=== PATIENT | male | born 1975 | race Caucasian/White ===

== ENCOUNTER 2019-09-12 10:19 | Emergency (ER) | payer OTHER ==
[~2019-09-12] VITALS: Ht 175.3 cm; Wt 77.1 kg
--- NOTE | 2019-09-12 10:28 | NUR ---
"Headache on/off since last night- received upsetting news couple days ago +tingling in hands", to ER bed 3, hooked to school bus monitor, changed to hosp gown, warm blanket provided, patient aao X 4, breathing even and unlabored. Dr Nichols at bedside
[2019-09-12 10:48] LABS: BASOPHILS % (AUTO) 0.5 % (0.0-2.0); EOSINOPHILS % (AUTO) 2.4 % (0.0-6.0); HEMATOCRIT 51 % (39-51); HEMOGLOBIN 17.1 g/dL (13.5-17.5); LYMPHOCYTES # (AUTO) 2.2 /CMM (0.8-4.8); LYMPHOCYTES % (AUTO) 24.2 % (20.0-44.0); MEAN CORPUSCULAR HGB CONC 34 g/dl (31.0-36.0); MEAN CORPUSCULAR VOLUME 91 fL (80-96); MONOCYTES # (AUTO) 0.6 /CMM (0.1-1.30); MONOCYTES % (AUTO) 6.4 % (2.0-12.0); NEUTROPHILS # (AUTO) 5.9 /CMM (1.8-8.9); NEUTROPHILS % (AUTO) 66.5 % (43.0-81.0); PLATELET COUNT (AUTO) 168 /CMM (150-450); RED BLOOD CELL COUNT(AUTO) 5.56 MIL/uL (4.5-6.0); WHITE BLOOD COUNT (AUTO) 8.9 K/uL (4.3-11.0)
--- NOTE | 2019-09-12 10:49 | NUR ---
wheeled patient via wheelchair for ct
[2019-09-12] MEDS ORDERED: IBUPROFEN 600 MG TABLET PO ONE ×2 (11:00→11:15)
[2019-09-12] MEDS ORDERED: ACETAMINOPHEN ES 500 MG TABLET PO ONE (11:00)
[2019-09-12 11:01] LABS: CALCIUM, SERUM 8.9 mg/dL (8.5-10.1); CARBON DIOXIDE 27 mmol/L (21-32); CHLORIDE 105 mmol/L (98-107); CREATININE 1.2 mg/dL (0.6-1.3); GLUCOSE 117 mg/dL (74-106); POTASSIUM 3.7 mmol/L (3.5-5.1); SODIUM SERUM 140 mmol/L (136-145); UREA NITROGEN, BLOOD 14 mg/dL (7-18)
[2019-09-12 11:07] LABS: ALANINE AMINOTRANSFERASE 50 U/L (12-78); ALBUMIN 4.3 g/dL (3.4-5.0); ALKALINE PHOSPHATASE 99 U/L (46-116); ASPARTATE AMINOTRANSFERASE 22 U/L (15-37); BILIRUBIN,DIRECT 0.2 mg/dL (0.0-0.2); BILIRUBIN,TOTAL 0.7 mg/dL (0.2-1.0); TOTAL PROTEIN, SERUM 7.8 g/dL (6.4-8.2)
[2019-09-12] MEDS ORDERED: ACETAMINOPHEN ES 500 MG TABLET ONE (11:15)
--- NOTE | 2019-09-12 11:33 | NUR ---
IV removed. Catheter intact and site benign. Pressure and 4x4 applied to site. No bleeding noted.Patient discharged to home in stable condition. Written and verbal after care instructions given. Patient verbalizes understanding of instruction.
[2019-09-12 11:43] VITALS: BP 149/87
== END 2019-09-12 11:37 | disposition home or self-care (01) ==
LOC: ER 10:23
DX: R51 Headache (principal)
CPT/HCPCS: 36415; 70450-TC; 71045-TC; 80048-TC; 80076-TC; 84484-TC; 85025-TC

== ENCOUNTER 2021-05-21 20:48 | Inpatient (IN) | payer OTHER ==
[~2021-05-21] VITALS: Ht 177.8 cm; Wt 89.8 kg
--- NOTE | 2021-05-21 21:35 | NUR ---
BIBS FOR C/O SEVERE HEADACHE AND FEVER/ CHILLS SINCE LAST WEEK. GENERALIZED HEADACHE 10/10 DESCRIBED PRESSURE. TEMP 100.8 AT TRIAGE NO TYLENOL TAKEN AT HOME. PT CHANGED INTO A GOWN AND PLACED ON MONITOR AND V/S STABLE.
[2021-05-21] MEDS ORDERED: ACETAMINOPHEN ES 500 MG TABLET ONE (21:45)
--- NOTE | 2021-05-21 21:52 | NUR ---
pt to ct on unique
[2021-05-21] MEDS ORDERED: CEFTRIAXONE 2 G in IV D5W 50 ML IV ONE (22:00)
[2021-05-21] MEDS ORDERED: ACETAMINOPHEN ES 500 MG TABLET PO ONE (22:00)
[2021-05-21] MEDS ORDERED: CEFTRIAXONE 1 G VIAL ONE (22:08)
--- NOTE | 2021-05-21 22:33 | NUR ---
ORDERED THE PX TO DOSE VANCO. VERIFIED WITH DR. BLOCK REGARDING DOSE. MD MOOREDERED TO GIVE VANCOMYCIN 1GM IV X 1.
--- NOTE | 2021-05-21 22:36 | NUR ---
PT IS UNABLE TO URINATE AT THIS TIME. IS AWARE.
[2021-05-21 22:42] LABS: BASOPHILS % (AUTO) 0.4 % (0.0-2.0); EOSINOPHILS % (AUTO) 0.2 % (0.0-6.0); HEMATOCRIT 38 % (39-51); HEMOGLOBIN 13.1 g/dL (13.5-17.5); LYMPHOCYTES # (AUTO) 0.8 K/uL (0.8-4.8); LYMPHOCYTES % (AUTO) 11.8 % (20.0-44.0); MEAN CORPUSCULAR HGB CONC 35 g/dl (31.0-36.0); MEAN CORPUSCULAR VOLUME 85 fL (80-96); MONOCYTES # (AUTO) 0.4 K/uL (0.1-1.30); MONOCYTES % (AUTO) 5.2 % (2.0-12.0); NEUTROPHILS # (AUTO) 5.8 K/uL (1.8-8.9); NEUTROPHILS % (AUTO) 82.4 % (43.0-81.0); RED BLOOD CELL COUNT(AUTO) 4.47 MIL/uL (4.5-6.0); WHITE BLOOD COUNT (AUTO) 7.1 K/uL (4.3-11.0)
[2021-05-21 22:47] LABS: PLATELET COUNT (AUTO) 38 K/uL (150-450)
[2021-05-21] MEDS ORDERED: IV NS 0.9% 500 ML BAG IV ONE (23:00)
[2021-05-21] MEDS ORDERED: VANCOMYCIN HCL 1 GM in IV D5W 260 ML IV ONE (23:00)
[2021-05-21 23:04] LABS: CALCIUM, SERUM 8.3 mg/dL (8.5-10.1); CREATININE 1.1 mg/dL (0.6-1.3)
[2021-05-21 23:16] LABS: POTASSIUM 3.3 mmol/L (3.5-5.1)
[2021-05-21] MEDS ORDERED: IOHEXOL-300 100 ML VIAL IV ONE (23:35)
[2021-05-21] MEDS ORDERED: IV NS 0.9% 250 ML IV ONE (23:36)
[2021-05-21] MEDS ORDERED: VANCOMYCIN 1 GM VIAL ONE (23:37)
[2021-05-22 01:14] LABS: BILIRUBIN,URINE NEGATIVE (NEGATIVE); COLOR,URINE YELLOW (YELLOW); LEUKOCYTE ESTERASE ,URINE NEGATIVE (NEGATIVE); NITRITE, URINE NEGATIVE (NEGATIVE); PH,URINE 6.5 (5.0-8.0); PROTEIN,URINE NEGATIVE (NEGATIVE); UGLUCOSE NEGATIVE (NEGATIVE)
[2021-05-22 01:21] LABS: BACTERIA,URINE Rare /HPF (None Seen); WBC,URINE 0-2 /HPF (0-3)
[2021-05-22 01:22] LABS: SQUAMOUS EPITHELIAL CELL,UR Rare /HPF (None Seen)
--- NOTE | 2021-05-22 04:50 | NUR ---
REPORT GIVEN TO ALAN RODRIGUEZ FOR KATLIN
--- NOTE | 2021-05-22 04:56 | NUR ---
PT PLACED ON 02 VIA NC @ 2LPM, PT WAS SATTING 93%, NOW SATTING AT 98%
--- NOTE | 2021-05-22 05:07 | NUR ---
PT TRANSPORT TO UNIT ON [facility] EMT AND RN AT BEDSIDE W/ ACLS PROTOCOL. NAD NOTED DURING TRANSPORT. PT AMBULATED FROM [place] TO BED WITH OUT ASSISTANCE
[2021-05-22 05:41] VITALS: BP 139/79
[2021-05-22] MEDS ORDERED: ACETAMINOPHEN 325 MG TABLET PO PRN (06:00)
[2021-05-22] MEDS ORDERED: ONDANSETRON HCL/PF 4 MG/2 ML VIAL IVP PRN (06:00)
[2021-05-22] MEDS ORDERED: POTASSIUM CHLORIDE 20 MEQ TAB.PRT.SR PO ONE (06:00)
[2021-05-22] MEDS: IV NS 0.9% 1,000 ML IV PRN ×2 (06:18→21:57)
--- NOTE | 2021-05-22 07:30 | NUR ---
LAMP SHADES SUPERVISOR NOTES RECEIVED PATIENT IN BED AWAKE. ALERT AND ORIENTED TIMES 4. NO PAIN NOTED. NO RESPIRATORY DISTRESS NOTED. ON TELE MONITOR READING SINUS RHYTHM. IV ACCESS ON RAC # 18 SL AND LAC # 18 INTACT RUNNING NS AT 75 ML/HR. NPO FOR ULTRASOUND. ABLE TO MAKE NEEDS KNOWN . ABLE TO AMBULATE. SAFETY MEASURES IN PLACE. BED IN THE LOWEST POSITION AND LOCKED. CALL LIGHT AND TABLE IN PLACE . WILL CONTINUE TO MONITOR.
[2021-05-22 07:34] LABS: BASOPHILS % (AUTO) 0.3 % (0.0-2.0); EOSINOPHILS % (AUTO) 0.1 % (0.0-6.0); HEMATOCRIT 34 % (39-51); HEMOGLOBIN 12.2 g/dL (13.5-17.5); LYMPHOCYTES # (AUTO) 0.5 K/uL (0.8-4.8); MEAN CORPUSCULAR HGB CONC 36 g/dl (31.0-36.0); MEAN CORPUSCULAR VOLUME 85 fL (80-96); MONOCYTES # (AUTO) 0.3 K/uL (0.1-1.30); MONOCYTES % (AUTO) 5.5 % (2.0-12.0); NEUTROPHILS # (AUTO) 5.3 K/uL (1.8-8.9); NEUTROPHILS % (AUTO) 86.1 % (43.0-81.0); RED BLOOD CELL COUNT(AUTO) 4.04 MIL/uL (4.5-6.0); WHITE BLOOD COUNT (AUTO) 6.2 K/uL (4.3-11.0)
[2021-05-22 07:38] LABS: PLATELET COUNT (AUTO) 33 K/uL (150-450)
[2021-05-22] MEDS: PANTOPRAZOLE 40 MG VIAL IV SCH (08:27)
--- NOTE | 2021-05-22 08:30 | NUR ---
ALAN AYALA FROM LAB CALLED AT 0738 AM GAVE CRITICAL LAB RESULT OF PLATELET COUNT 33. INFORMED DR AP BUCKLEY AT 0830.
[2021-05-22 09:17] LABS: ALANINE AMINOTRANSFERASE 208 U/L (12-78); ALBUMIN 2.6 g/dL (3.4-5.0); ALKALINE PHOSPHATASE 172 U/L (46-116); AMYLASE 33 U/L (25-115); ASPARTATE AMINOTRANSFERASE 178 U/L (15-37); BILIRUBIN,DIRECT 2.9 mg/dL (0.0-0.2); BILIRUBIN,TOTAL 3.5 mg/dL (0.2-1.0); CALCIUM, SERUM 7.7 mg/dL (8.5-10.1); CARBON DIOXIDE 24 mmol/L (21-32); CHLORIDE 100 mmol/L (98-107); CREATININE 0.9 mg/dL (0.6-1.3); GLUCOSE 120 mg/dL (74-106); LIPASE 102 U/L (73-393); MAGNESIUM 2.2 mg/dL (1.8-2.4); PHOSPHORUS 1.8 mg/dL (2.5-4.9); POTASSIUM 3.3 mmol/L (3.5-5.1); SODIUM SERUM 133 mmol/L (136-145); TOTAL PROTEIN, SERUM 5.2 g/dL (6.4-8.2); UREA NITROGEN, BLOOD 7 mg/dL (7-18)
[2021-05-22 09:21] LABS: CHOLESTEROL 75 mg/dL (<200); LDL 27 mg/dL (0-99); TRIGLYCERIDES 325 mg/dL (30-150)
[2021-05-22] MEDS: VANCOMYCIN 1.25 GM in IV D5W 250 ML IV SCH ×2 (09:50→21:06)
[2021-05-22 12:20] LABS: BAND % (MANUAL) 4 % (0.0-5.0); LYMPHOCYTES % (MANUAL) 11 % (16-48); MONOCYTES % (MANUAL) 3 % (0-11.0); NEUTROPHILS % (MANUAL) 82 (42-76)
[2021-05-22 12:25] LABS: BAND % (MANUAL) 4 % (0.0-5.0); EOSINOPHILS % (MANUAL) 1 % (0-4); LYMPHOCYTES % (MANUAL) 6 % (16-48); MONOCYTES % (MANUAL) 6 % (0-11.0); NEUTROPHILS % (MANUAL) 83 (42-76)
[2021-05-22 13:42] LABS: HDL CHOLESTEROL < 10 mg/dL (40-60)
[2021-05-22] MEDS ORDERED: K PHOS NEUTRAL 250 MG TABLET PO ONE (16:00)
--- NOTE | 2021-05-22 18:42 | NUR ---
SCIENTIFIC LABORATORY SUPERVISOR CLOSING NOTES PATIENT IN BED AWAKE. ALERT AND ORIENTED TIMES 4. NO PAIN NOTED. NO RESPIRATORY DISTRESS NOTED. ON TELE MONITOR READING SINUS RHYTHM. IV ACCESS ON RAC # 18 SL AND LAC # 18 INTACT RUNNING NS AT 75 ML/HR. ABLE TO MAKE NEEDS KNOWN . TEMP =99.5. ABLE TO AMBULATE. ALL DUE MEDS GIVEN ORDERED. SAFETY MEASURES IN PLACE. BED IN THE LOWEST POSITION AND LOCKED. CALL LIGHT AND TABLE IN PLACE . WILL ENDORSE FOR KATLIN. .
[2021-05-22 20:00] VITALS: BP 117/69
[2021-05-22] MEDS: HYDROCODONE/APAP 5/325MG TABLET PO PRN (20:15)
--- NOTE | 2021-05-22 20:15 | NUR ---
RN NOTES, PT C/O HEADACHE 11/03, PATIENT WITH FACIAL GRIMACING, A/OX4 SHIRA TO COMMUNICATE NEEDS AND CONCERNS, ON 2LPM VIA NC WITH OPTIMAL O2, X1 VOID AT THIS TIME, ALL SAFETY PRECAUTIONS IN PLACE, S/R OF BED X2 UP, CALL LIGHT W/I REACH, WILL CONTINUE TO MONITOR CLOSELY.
[2021-05-22] MEDS: METRONIDAZOLE 500MG/ NS 100ML 500 MG in PREMIX 1 EA IV SCH (21:50)
[2021-05-22] MEDS ORDERED: CEFTRIAXONE 1 G in IV D5W 50 ML IV SCH (22:00)
[2021-05-23] VITALS: BP 118/75
--- NOTE | 2021-05-23 00:40 | NUR ---
NOTED PATIENT WITH O2 80%, IN RESPIRATORY DISTRESS WITH HR 130S, RR 50-60, BLOOD PRESSURE 160/82, PLACED PATIENT IN NRM AT 15L, O2 INCREASED TO 100%, PATIENT UNABLE TO SAY COMPLETE SENTENCES, BUT ALERT AND ORIENTED, WILL INFORM MD.
--- NOTE | 2021-05-23 00:42 | NUR ---
CALLED DR IBARRA AND REPORT PATIENT'S CONDITION, PER DR IBARRA DO ABGS, CXR, CBC, CMP, PROCALCITONIN, LACTIC ACID, AND EKG STAT, ALL ORDERS NOTED AND CARRIED OUT.
--- NOTE | 2021-05-23 00:54 | NUR ---
RECHECK OF VITAL SIGNS BP-154/82, P-128, RR 45, 100% NRM 15L, PATIENT STILL WITH SOB, WILL CONTINUE TO MONITOR CLOSELY,
[2021-05-23 00:58] LABS: ABG BASE EXCESS 0.1 mmol/L; ABG OXYGEN SATURATION 99.1 % (92.0-98.5); ABG PCO2 30.7 mmHg (35.0-45.0); ABG PH 7.487 (7.350-7.450); ABG PO2 270.1 mmHg (75.0-100.0); AaDO2 412.2 mmHg; COHb 0.1 % (0.5-1.5); MetHb 0.2 % (0.0-1.5); O2Hb 98.8 % (94.0-97.0); SITE, ABG Left Radial; VENT MODE, BG NRB 15L O2
[2021-05-23 01:28] LABS: BASOPHILS % (AUTO) 0.5 % (0.0-2.0); EOSINOPHILS % (AUTO) 0.2 % (0.0-6.0); HEMATOCRIT 35 % (39-51); LYMPHOCYTES % (AUTO) 11.7 % (20.0-44.0); MEAN CORPUSCULAR HGB CONC 35 g/dl (31.0-36.0); MEAN CORPUSCULAR VOLUME 85 fL (80-96); MONOCYTES # (AUTO) 0.7 K/uL (0.1-1.30); NEUTROPHILS # (AUTO) 6.8 K/uL (1.8-8.9); NEUTROPHILS % (AUTO) 79.6 % (43.0-81.0); RED BLOOD CELL COUNT(AUTO) 4.04 MIL/uL (4.5-6.0); WHITE BLOOD COUNT (AUTO) 8.6 K/uL (4.3-11.0)
[2021-05-23 01:33] LABS: PLATELET COUNT (AUTO) 41 K/uL (150-450)
[2021-05-23 01:45] LABS: ALBUMIN 2.3 g/dL (3.4-5.0); BILIRUBIN,TOTAL 4.6 mg/dL (0.2-1.0); CALCIUM, SERUM 7.4 mg/dL (8.5-10.1); POTASSIUM 3.5 mmol/L (3.5-5.1)
[2021-05-23 01:56] LABS: CREATININE 1.1 mg/dL (0.6-1.3)
--- NOTE | 2021-05-23 02:05 | NUR ---
RELAYED DR IBARRA RESULTS FOR LABS, EKG, CRX AND EKG, AND PER DR IBARRA TO HOLD THE IV FLUIDS AT THIS TIME AND GIVE LASIX 10MG IVP ONCE, ALL ORDERS NOTED AND CARRIED OUT.
[2021-05-23] MEDS ORDERED: FUROSEMIDE 20 MG/2 ML VIAL IV ONE (02:10)
[2021-05-23 03:39] LABS: BASOPHILS % (AUTO) 0.3 % (0.0-2.0); EOSINOPHILS % (AUTO) 0.1 % (0.0-6.0); HEMATOCRIT 34 % (39-51); HEMOGLOBIN 11.9 g/dL (13.5-17.5); LYMPHOCYTES # (AUTO) 0.7 K/uL (0.8-4.8); LYMPHOCYTES % (AUTO) 8.1 % (20.0-44.0); MEAN CORPUSCULAR HGB CONC 35 g/dl (31.0-36.0); MEAN CORPUSCULAR VOLUME 86 fL (80-96); MONOCYTES # (AUTO) 0.5 K/uL (0.1-1.30); MONOCYTES % (AUTO) 6.4 % (2.0-12.0); NEUTROPHILS % (AUTO) 85.1 % (43.0-81.0); RED BLOOD CELL COUNT(AUTO) 3.98 MIL/uL (4.5-6.0); WHITE BLOOD COUNT (AUTO) 8.2 K/uL (4.3-11.0)
[2021-05-23 03:45] LABS: PLATELET COUNT (AUTO) 36 K/uL (150-450)
[2021-05-23 03:51] LABS: BAND % (MANUAL) 9 % (0.0-5.0); LYMPHOCYTES % (MANUAL) 8 % (16-48); MONOCYTES % (MANUAL) 2 % (0-11.0); NEUTROPHILS % (MANUAL) 76 (42-76); REACTIVE LYMPHOCYTES 5 % (0-0)
[2021-05-23 03:52] LABS: CALCIUM, SERUM 7.4 mg/dL (8.5-10.1); CREATININE 1.3 mg/dL (0.6-1.3); MAGNESIUM 1.9 mg/dL (1.8-2.4); PHOSPHORUS 2.1 mg/dL (2.5-4.9); POTASSIUM 3.1 mmol/L (3.5-5.1)
[2021-05-23] MEDS: HYDROCODONE/APAP 5/325MG TABLET PO PRN ×2 (03:59→17:37)
[2021-05-23 04:00] VITALS: BP 118/77
[2021-05-23] MEDS: METRONIDAZOLE 500MG/ NS 100ML 500 MG in PREMIX 1 EA IV SCH ×3 (05:33→22:17)
--- NOTE | 2021-05-23 06:03 | NUR ---
PAGED DR IBARRA TO REPORT HIGH RATE 163 AT THIS TIME, EMBEDDED SOFTWARE TEST ENGINEER WILL PAGE HIM, PATIENT IN CONTINUOUS MONITOR, NO DISTRESS, NO SOB VS 104/60,22, 99% AT 4LPM VIA NC, DENIES CHEST PAIN.
--- NOTE | 2021-05-23 06:12 | NUR ---
DR IBARRA CALLED BACK AND INFORM ABOUT PATIENT IN SUPRAVENTRICULAR TACHYCARDIA, AND HE REPLIED WITH STAT EKG ORDER AND ASKED IF WE CAN GIVE ADENOSINE IN THIS UNIT, RESPOND TO HIM THAT YES WE CAN GIVE ADENOSINE, AND HE STATED THAT HE WANTS THE EKG RESULTS FIRST.
--- NOTE | 2021-05-23 06:25 | NUR ---
PAGED DR IBARRA AT THIS TIME TO REPORT EKG RESULTS, QUARRY WORKER WILL PAGE HIM.
--- NOTE | 2021-05-23 06:30 | NUR ---
DR IBARRA CALLED BACK AND RESULTS FOR EKG RELAYED TO HIM AND HE REPLIED WITH ORDER FOR AMIODARONE PER PROTOCOL PHARMACY TO DOSE WITH BOLUS, ORDER NOTED AND CARRIED OUT, WILL CONTINUE TO MONITOR CLOSELY.
--- NOTE | 2021-05-23 06:53 | NUR ---
AMIODARONE BOLUS GIVEN AT THIS TIME, PATIENT TOLERATED WELL.
[2021-05-23] MEDS ORDERED: AMIODARONE 150 MG in IV D5W 100 ML IV ONE (07:00)
[2021-05-23] MEDS ORDERED: AMIODARONE 450 MG in IV D5W 241 ML IV PRN (07:00)
--- NOTE | 2021-05-23 07:03 | NUR ---
AMIODARONE DRIP 1MG STARTING AT THIS TIME.
--- NOTE | 2021-05-23 07:50 | NUR ---
REPORT GIVEN TO NEGRO PHILLIPS FOR CONTINUATION OF CARE, PATIENT IN AMIODARONE 1MG DRIP AT THIS TIME, WITH HR STILL 164 AT THIS TIME, PATIENT DENIES ANY CHEST PAIN OR DISCOMFORT BP 110/72, CONT ON 4LPM VIA NC WITH O2 99%, NO SOB/ACUTE DISTRESS, ALL CRITICAL LABS REPORT TO ANDONIAN, NO NEW ORDERS FOR THE CRITICAL LACTIC, ACID AND PLATELET.
[2021-05-23 08:00] VITALS: BP 107/65
--- NOTE | 2021-05-23 08:16 | NUR ---
RN NOTE RECEIVED PATIENT A/O X 4. WITH NO CURRENT COMPLAINTS OF SOB OR PAIN. PATIENT IS ABLE TO VERBALIZE NEEDS. IV ACCESS NOTED ON R AC RUINING AMIODARONE 1MG/MIN. PATIENT IS AMBULATORY BUT REMINDED TO CALL FOR HELP IF HE NEEDS TO GET UP. SAFETY MEASURES IN PLACE, CALL LIGHT WITHIN REACH BED LOCKED IN THE LOWEST POSITION 2 SIDE RAILS UP.
[2021-05-23] MEDS ORDERED: CEFTRIAXONE 2 G in IV D5W 100 ML IV SCH (09:00)
[2021-05-23 09:07] LABS: AFP, TUMOR MARKER <0.9 ng/mL (0.0-6.9); CARBOHYDRATE AG 19-9 42 U/mL (0-35)
--- NOTE | 2021-05-23 10:00 | NUR ---
RN NOTE PATIENT NOTED HR OF 165 PROVIDER NOTIFIED.
[2021-05-23] MEDS: PANTOPRAZOLE 40 MG VIAL IV SCH (10:39)
[2021-05-23] MEDS: POTASSIUM CHLORIDE 20 MEQ TAB.PRT.SR PO SCH ×8 (10:39→17:00)
[2021-05-23 12:00] VITALS: BP 104/69
[2021-05-23] MEDS: VANCOMYCIN 1.25 GM in IV D5W 250 ML IV SCH ×2 (12:08→20:22)
[2021-05-23] MEDS: DIGOXIN INJ 0.5 MG/2 ML AMPUL IV SCH ×2 (12:09→17:38)
[2021-05-23 12:19] LABS: THYROID STIMULATING HORMONE 1.511 uIU/mL (0.358-3.74)
[2021-05-23] MEDS: METOPROLOL TARTRATE 50 MG TABLET PO SCH ×2 (12:19→21:00)
[2021-05-23 14:02] LABS: D-DIMER 8.78 mg/L(FEU (0.17-0.50)
--- NOTE | 2021-05-23 14:35 | NUR ---
RN NOTE GAVE 3 DOSES OF POTASSIUM- NO REACTION
[2021-05-23 16:00] VITALS: BP 112/68
[2021-05-23] MEDS ORDERED: K PHOS NEUTRAL 250 MG TABLET PO ONE (16:00)
[2021-05-23] MEDS ORDERED: ACETAMINOPHEN 650 MG/20.3 ML UDC NG PRN (18:00)
--- NOTE | 2021-05-23 18:13 | NUR ---
RN NOTE DUPLICATE ORDER OF POTASSIUM NOTED SPOKE WITH PHARMACY CONFIRMED IT IS A DUPLICATE ORDER.
--- NOTE | 2021-05-23 18:18 | NUR ---
RN NOTE PATIENT NOTED TO HAVE TEMP 102.9. COOLING MEASURES IMPLEMENTED PROVIDER NOTIFIED, RECEIVED ORDER FOR TYLENOL, ADMINISTER.
--- NOTE | 2021-05-23 19:53 | NUR ---
RN CLOSING NOTE PATIENT A/O X 4. WITH NO CURRENT COMPLAINTS OF SOB OR PAIN. PATIENT IS ABLE TO VERBALIZE NEEDS. IV ACCESS . PATIENT IS AMBULATORY BUT REMINDED TO CALL FOR HELP IF HE NEEDS TO GET UP. SAFETY MEASURES IN PLACE, CALL LIGHT WITHIN REACH BED LOCKED IN THE LOWEST POSITION 2 SIDE RAILS UP. WILL ENDORSE TO NIGHT NURSE TO KATLIN.
[2021-05-23 20:00] VITALS: BP 92/54
--- NOTE | 2021-05-23 20:30 | NUR ---
RN NOTE RECEIVED PT IN BED, ALERT AND ORIENTED X4. NOT IN ANY DISTRESS. PT ON TELE MONITORING SHOWS AFLUTTER SINCE AM. PT DENIES ANY SOB OR CHEST PAIN. IV ON LEFT HAND PATENT AND INTACT, INSERTED ANOTHER LINE ON RHAND 20G. WITH GOOD BLOOD RETURN, FLUSHES WELL. EDUCATED REGARDING NPO AT AL FOR MRI IN AM. PT VERBALIZES UNDERSTANDING. WILL CONTINUE TO MONITOR.
[2021-05-23] MEDS: CEFTRIAXONE 2 G in IV D5W 100 ML IV SCH (21:37)
[2021-05-24] VITALS: BP 111/69
[2021-05-24] MEDS: DIGOXIN INJ 0.5 MG/2 ML AMPUL IV SCH (00:22)
[2021-05-24] MEDS: VANCOMYCIN 1.25 GM in IV D5W 250 ML IV SCH ×2 (03:45→11:31)
[2021-05-24 04:00] VITALS: BP 92/66
[2021-05-24] MEDS: METRONIDAZOLE 500MG/ NS 100ML 500 MG in PREMIX 1 EA IV SCH ×3 (05:38→21:42)
--- NOTE | 2021-05-24 06:10 | NUR ---
RN NOTE PT SIGNED CONSENT FOR MRI W CONTRAST OF ABDOMEN, VERBALIZES UNDERSTANDING.
--- NOTE | 2021-05-24 06:53 | NUR ---
RN NOTE PT REMAIN IN BED, ABLE TO MAKE NEEDS KNOWN. NO CHANGES IN LOC NOTED. DENIES PAIN AT THIS TIME. REMAIN AFEBRILE. PT STILL AFLUTTER ON TELE MONITOR AND EKG WITH HR OF 80S. DENIES ANY CHEST PAIN OR SOB. TOLERATING ROOM AIR. ALL DUE IV ATBS WERE GIVEN ORDERED. PT AMBULATES TO RESTROOM. NPO SINCE MIDNIGHT. ALL NEEDS ATTENDED. WILL ENDORSE TO NEXT SHIFT NURSE FOR KATLIN.
--- NOTE | 2021-05-24 07:21 | NUR ---
RN OPENING NOTE RECEIVED PT RESTING IN BED, RESPONDS TO NAME A/O X 4. NOT IN ANY DISTRESS. PT ON TELE MONITORING.. PT DENIES ANY SOB OR CHEST PAIN. IV ON LEFT HAND AND ON RIGHT HAND 20G IV PATENT WITH NO SINGS OF INFILTRATION. PATIENT HAS BEEN NPO SINCE MIDNIGHT DUE TO A SCHEDULED MRI AND CT OF THE ABDOMEN THIS MORNING. SAFETY MEASURES IN PLACE, BED LOCKED IN THE LOWEST POSITION, TWO SIDE RAILS UP AND CALL LIGHT WITHIN REACH.
[2021-05-24 07:26] LABS: ALBUMIN 1.9 g/dL (3.4-5.0); BILIRUBIN,TOTAL 5.1 mg/dL (0.2-1.0); CALCIUM, SERUM 7.3 mg/dL (8.5-10.1); CREATININE 2.6 mg/dL (0.6-1.3); MAGNESIUM 2.5 mg/dL (1.8-2.4); PHOSPHORUS 2.1 mg/dL (2.5-4.9); POTASSIUM 3.7 mmol/L (3.5-5.1); TOTAL PROTEIN, SERUM 4.6 g/dL (6.4-8.2)
[2021-05-24 08:00] VITALS: BP 127/58
[2021-05-24] MEDS: METOPROLOL TARTRATE 50 MG TABLET PO SCH ×2 (08:04→21:42)
[2021-05-24] MEDS: CEFTRIAXONE 2 G in IV D5W 100 ML IV SCH ×2 (08:04→21:44)
[2021-05-24] MEDS: PANTOPRAZOLE 40 MG TABLET.DR PO SCH (08:04)
[2021-05-24 08:06] LABS: IMMUNOGLOBULIN A, SERUM 176 mg/dL (90-386); IMMUNOGLOBULIN G, SERUM 596 mg/dL (603-1613); IMMUNOGLOBULIN M, SERUM 89 mg/dL (20-172)
[2021-05-24] MEDS: HYDROCODONE/APAP 5/325MG TABLET PO PRN (08:16)
[2021-05-24 08:29] LABS: BASOPHILS # (AUTO) 0.1 K/uL (0.0-0.2); BASOPHILS % (AUTO) 0.6 % (0.0-2.0); EOSINOPHILS % (AUTO) 0.4 % (0.0-6.0); HEMATOCRIT 35 % (39-51); LYMPHOCYTES # (AUTO) 1.5 K/uL (0.8-4.8); LYMPHOCYTES % (AUTO) 12.8 % (20.0-44.0); MEAN CORPUSCULAR HGB CONC 34 g/dl (31.0-36.0); MEAN CORPUSCULAR VOLUME 85 fL (80-96); MONOCYTES # (AUTO) 1.1 K/uL (0.1-1.30); MONOCYTES % (AUTO) 9.9 % (2.0-12.0); NEUTROPHILS # (AUTO) 8.8 K/uL (1.8-8.9); NEUTROPHILS % (AUTO) 76.3 % (43.0-81.0); RED BLOOD CELL COUNT(AUTO) 4.08 MIL/uL (4.5-6.0); WHITE BLOOD COUNT (AUTO) 11.5 K/uL (4.3-11.0)
[2021-05-24 08:35] LABS: PLATELET COUNT (AUTO) 40 K/uL (150-450)
[2021-05-24 10:08] LABS: *ANA ANTI-CENTROMERE B AB <0.2 AI (0.0-0.9); *ANA ANTI-DNA(DS) AB, QN <1 IU/mL (0-9); *ANA ANTI-JO-1 <0.2 AI (0.0-0.9); *ANA ANTICHROMATIN ANTIBODY <0.2 AI (0.0-0.9); *ANA RNP ANTIBODIES <0.2 AI (0.0-0.9); *ANA SJOGREN'S ANTI-SS-A <0.2 AI (0.0-0.9); *ANA SJOGREN'S ANTI-SS-B <0.2 AI (0.0-0.9); *ANAANTI-SCLERODERMA-70 AB <0.2 AI (0.0-0.9); *ANASMITH AB <0.2 AI (0.0-0.9)
[2021-05-24] MEDS ORDERED: K PHOS NEUTRAL 250 MG TABLET PO ONE (11:00)
[2021-05-24 12:00] VITALS: BP 104/64
--- NOTE | 2021-05-24 13:20 | NUR ---
RN NOTE PATIENTS NPO STATUS REMOVED DUE TO MRI BEING DONE. REGULAR DIET ORDER RE STARTED.
[2021-05-24] MEDS: DAPTOMYCIN 500 MG in IV NS 0.9% 50 ML IV SCH (13:56)
[2021-05-24 14:07] LABS: *SPE ALPHA-1-GLOBULIN 0.4 g/dL (0.0-0.4); *SPE ALPHA-2-GLOBULIN 0.7 g/dL (0.4-1.0); *SPE BETA GLOBULIN 0.8 g/dL (0.7-1.3); *SPE M-SPIKE Not Observed g/dL (Not Observed)
[2021-05-24] MEDS ORDERED: GADOTERATE MEGLUMINE 10 MMOL/20 ML VIAL IV ONE (15:22)
[2021-05-24 16:00] VITALS: BP 113/68
[2021-05-24] MEDS: FERROUS SULFATE (325 MG) 325 MG/TAB TABLET PO SCH (17:35)
--- NOTE | 2021-05-24 17:45 | NUR ---
RN NOTE PATIENT HAD ONE EPISODE OF EMESES APPROXIMALLY 20-30CC. REPORTS NAUSEA. ONDANSETRON ADMINISTERED.
--- NOTE | 2021-05-24 18:30 | NUR ---
RN NOTE OCCULT BLOOD SAMPLE COLLECTED, CALLED PHARMACY FOR PICKUP
--- NOTE | 2021-05-24 18:40 | NUR ---
RN CLOSING NOTE RECEIVED PT RESTING IN BED, RESPONDS TO NAME A/O X 4. NOT IN ANY DISTRESS. PT ON TELE MONITOR. PT DENIES ANY SOB. IV ON LEFT HAND AND ON RIGHT HAND 20G IV PATENT WITH NO SIGNS OF INFILTRATION. ALL SCHEDULED MEDICATIONS GIVEN. SAFETY MEASURES IN PLACE, BED LOCKED IN THE LOWEST POSITION, TWO SIDE RAILS UP AND CALL LIGHT WITHIN REACH. WILL ENDORSE TO NIGHT NURSE FOR KATLIN.
[2021-05-24 20:00] VITALS: BP 114/53
--- NOTE | 2021-05-24 20:00 | NUR ---
RN OPENING NOTE RECEIVED PTS IN BED, A/O X 4. NO SOB NO DISTRESS ON R/A . PT ON TELE MONITORING. ON A FLUTTER 98 PT DENIES ANY SOB OR CHEST PAIN. IV ON LEFT HAND AND ON RIGHT HAND 20G IV PATENT WITH NO SINGS OF INFILTRATION. DUE MEDS GIVEN ORDERED NO ASE NOTED ,ALL NEEDS ATTENDED TOO SAFETY MEASURES IN PLACE, BED LOCKED IN THE LOWEST POSITION, WILL CONTINUE TO MONITOR PTS.
[2021-05-25] VITALS: BP 99/69
[2021-05-25 04:00] VITALS: BP 115/69
[2021-05-25 04:28] LABS: OCCULT BLOOD STOOL NEGATIVE (NEGATIVE)
[2021-05-25] MEDS: METRONIDAZOLE 500MG/ NS 100ML 500 MG in PREMIX 1 EA IV SCH (05:39)
--- NOTE | 2021-05-25 06:53 | NUR ---
RN CLOSING NOTE RECEIVED PT IN BED, A/O X 4. NOT IN ANY DISTRESS. A FLUTTER ON THE MONITOR - 99 ,IV ON LEFT HAND AND ON RIGHT HAND 20G IV PATENT WITH NO SIGNS OF INFILTRATION. ALL SCHEDULED MEDICATIONS GIVEN. SAFETY MEASURES IN PLACE, BED LOCKED IN THE LOWEST POSITION, CALL LIGHT WITHIN REACH. WILL CONTINUE TO MONITOR.
[2021-05-25 07:20] LABS: ALBUMIN 1.9 g/dL (3.4-5.0); BILIRUBIN,TOTAL 3.6 mg/dL (0.2-1.0); CALCIUM, SERUM 7.5 mg/dL (8.5-10.1); MAGNESIUM 2.7 mg/dL (1.8-2.4); PHOSPHORUS 3.6 mg/dL (2.5-4.9); POTASSIUM 3.8 mmol/L (3.5-5.1); TOTAL PROTEIN, SERUM 4.8 g/dL (6.4-8.2)
--- NOTE | 2021-05-25 07:25 | NUR ---
RN OPENING NOTES RECEIVED PATIENT IN BED, A/O X4. ON RA WITH EVEN CHEST EXPANSION AND NO S/SX OF RESPIRATORY DISTRESS NOTED. ON TELE MONITOR READING A-FLUTTER 80 BPM. NO COMPLAINT OF PAIN VERBALIZED AT THIS TIME. LEFT HAND AND RIGHT HAND IV ACCESS G#20, BOTH INTACT AND PATENT. SAFETY MEASURES IN PLACE, BED LOCKED IN THE LOWEST POSITION WITH SIDE RAILS UP X2. WILL CONTINUE PLAN OF CARE
[2021-05-25 07:59] LABS: BASOPHILS # (AUTO) 0.1 K/uL (0.0-0.2); BASOPHILS % (AUTO) 1.1 % (0.0-2.0); EOSINOPHILS % (AUTO) 0.8 % (0.0-6.0); HEMATOCRIT 38 % (39-51); HEMOGLOBIN 12.8 g/dL (13.5-17.5); LYMPHOCYTES # (AUTO) 2.5 K/uL (0.8-4.8); LYMPHOCYTES % (AUTO) 21.5 % (20.0-44.0); MEAN CORPUSCULAR HGB CONC 34 g/dl (31.0-36.0); MEAN CORPUSCULAR VOLUME 87 fL (80-96); MONOCYTES # (AUTO) 1.3 K/uL (0.1-1.30); MONOCYTES % (AUTO) 11.3 % (2.0-12.0); NEUTROPHILS # (AUTO) 7.5 K/uL (1.8-8.9); NEUTROPHILS % (AUTO) 65.3 % (43.0-81.0); RED BLOOD CELL COUNT(AUTO) 4.39 MIL/uL (4.5-6.0); WHITE BLOOD COUNT (AUTO) 11.5 K/uL (4.3-11.0)
[2021-05-25 08:00] VITALS: BP 109/64
[2021-05-25 08:10] LABS: PLATELET COUNT (AUTO) 37 K/uL (150-450)
[2021-05-25] MEDS: FERROUS SULFATE (325 MG) 325 MG/TAB TABLET PO SCH ×2 (08:36→16:06)
[2021-05-25] MEDS: PANTOPRAZOLE 40 MG TABLET.DR PO SCH (08:36)
[2021-05-25] MEDS: METOPROLOL TARTRATE 50 MG TABLET PO SCH ×2 (08:37→22:06)
[2021-05-25] MEDS: CEFTRIAXONE 2 G in IV D5W 100 ML IV SCH ×2 (08:47→22:05)
[2021-05-25 12:00] VITALS: BP 109/64
[2021-05-25] MEDS: METRONIDAZOLE 500 MG TABLET PO SCH ×2 (12:44→22:05)
--- NOTE | 2021-05-25 15:00 | NUR ---
RN opening notes Received Pt from morning nurse. Pt is sitting in bed comfortably watching TV. Pt is alert and orientedX4. On room air. no SOB. No S/S of distress noted. IV site at R hand# 20 is clean, intact and flushes well. IV site at L hand# 22 is clean, intact and SL. Tele monitor showed a-flutter hr at 89. Pt is able to ambulates with a steady gait. Safety precautions is maintained. Bed at low position, brakes locked, side rails upX2, hob elevated and call light is within reach. Will continue to monitor.
--- NOTE | 2021-05-25 15:05 | NUR ---
RN notes Pt's PLT 37. Per am nurse, Per Dr. Wood. saw Pt and no need to transfuse PLT. Charge nurse is aware and informed.
[2021-05-25 16:00] VITALS: BP 114/72
--- NOTE | 2021-05-25 19:39 | NUR ---
RN notes Leave a message to Dr. Wood that Pt and Pt's family requesting MD to call Pt's family MD. Charge nurse is aware informed.
[2021-05-25 20:00] VITALS: BP 122/74
--- NOTE | 2021-05-25 20:00 | NUR ---
RN notes Pt's temp 101.3. Cooling measures is applied. MD is aware and notified. Charge nurse is aware and informed.
--- NOTE | 2021-05-25 23:02 | NUR ---
RN notes Spoke and informed Dr. Rodrigues that Pt is anxious and requesting meds. MD ordered no new meds. MD stated 'No meds for him." Also informed MD for high bun, creatinine. Charge nurse is aware and informed.
[2021-05-26] VITALS: BP 116/78
--- NOTE | 2021-05-26 | NUR ---
RN notes Pt's temp is 99.8 oral. Pt refused cooling measures. Pt stated "I have no fever." Explained risks and benefits. Pt keep refusing.
[2021-05-26 04:00] VITALS: BP 135/72
[2021-05-26] MEDS: METRONIDAZOLE 500 MG TABLET PO SCH ×3 (04:00→21:01)
--- NOTE | 2021-05-26 04:00 | NUR ---
RN notes Pt's temp oral 98.0.
--- NOTE | 2021-05-26 06:51 | NUR ---
RN closing notes Pt is resting in bed comfortably. Pt is alert and orientedX4. On room air. no SOB. No S/S of distress noted. VS is stable. afebrile. IV site at R hand# 20 is clean, intact and flushes well. Routine meds were given as ordered. IV site at L hand# 22 is clean, intact and SL. Tele monitor showed a-flutter hr at 87. Kept Pt clean, dry and comfortable. Safety precautions is maintained. Bed at low position, brakes locked, side rails upX2, hob elevated and call light is within reach. Will endorse to am nurse for KATLIN.
[2021-05-26 06:54] LABS: BASOPHILS # (AUTO) 0.1 K/uL (0.0-0.2); BASOPHILS % (AUTO) 0.6 % (0.0-2.0); EOSINOPHILS % (AUTO) 0.5 % (0.0-6.0); HEMATOCRIT 33 % (39-51); HEMOGLOBIN 11.3 g/dL (13.5-17.5); LYMPHOCYTES # (AUTO) 3.8 K/uL (0.8-4.8); LYMPHOCYTES % (AUTO) 23.8 % (20.0-44.0); MEAN CORPUSCULAR HGB CONC 35 g/dl (31.0-36.0); MEAN CORPUSCULAR VOLUME 86 fL (80-96); MONOCYTES % (AUTO) 12.8 % (2.0-12.0); NEUTROPHILS # (AUTO) 9.8 K/uL (1.8-8.9); NEUTROPHILS % (AUTO) 62.3 % (43.0-81.0); RED BLOOD CELL COUNT(AUTO) 3.79 MIL/uL (4.5-6.0); WHITE BLOOD COUNT (AUTO) 15.8 K/uL (4.3-11.0)
[2021-05-26 07:07] LABS: ALBUMIN 1.9 g/dL (3.4-5.0); CALCIUM, SERUM 7.4 mg/dL (8.5-10.1); MAGNESIUM 2.8 mg/dL (1.8-2.4); PHOSPHORUS 3.7 mg/dL (2.5-4.9); POTASSIUM 3.8 mmol/L (3.5-5.1); TOTAL PROTEIN, SERUM 5.2 g/dL (6.4-8.2)
[2021-05-26 07:16] LABS: PLATELET COUNT (AUTO) 33 K/uL (150-450)
--- NOTE | 2021-05-26 07:20 | NUR ---
RN NOTES RECEIVED A CRITICAL LAB RESULTS OF PLATELET 33 FROM LAB REPORTED BY CHRIS. AWAITING MD LIST FOR REFERRAL.
--- NOTE | 2021-05-26 07:30 | NUR ---
RN OPENING NOTES RECEIVED PATIENT IN BED, AWAKE, A/O X4. ON RA TOLERATING WELL, NO S/SX OF RESPIRATORY DISTRESS NOTED. ON TELE MONITOR READING A-FLUTTER 80 BPM. NO COMPLAINTS OF PAIN VERBALIZED AT THIS TIME. LEFT HAND AND RIGHT HAND IV ACCESS G#20, BOTH INTACT AND PATENT, FLUSHES WELL. SAFETY MEASURES IN PLACE, BED LOCKED IN THE LOWEST POSITION WITH SIDE RAILS UP X2. WILL CONTINUE TO OMITOR PATIENT ACCORDINGLY.
[2021-05-26] MEDS: PANTOPRAZOLE 40 MG TABLET.DR PO SCH (07:33)
[2021-05-26 08:00] VITALS: BP 123/82
[2021-05-26] MEDS: CEFTRIAXONE 2 G in IV D5W 100 ML IV SCH ×2 (08:11→21:01)
[2021-05-26] MEDS: METOPROLOL TARTRATE 50 MG TABLET PO SCH ×2 (08:12→21:04)
[2021-05-26] MEDS: FERROUS SULFATE (325 MG) 325 MG/TAB TABLET PO SCH ×2 (08:12→17:33)
--- NOTE | 2021-05-26 08:40 | NUR ---
RN NOTES PALTELET COUNT RESULT OF [address] AP JACQUES.
[2021-05-26 08:43] LABS: EOSINOPHILS % (MANUAL) 1 % (0-4); LYMPHOCYTES % (MANUAL) 26 % (16-48); MONOCYTES % (MANUAL) 13 % (0-11.0); NEUTROPHILS % (MANUAL) 60 (42-76)
[2021-05-26 11:36] LABS: PROSTATE SPECIFIC ANTIGEN SCR 0.74 ng/mL (0.00-4.00)
[2021-05-26 12:00] VITALS: BP 127/82
[2021-05-26] MEDS: DAPTOMYCIN 500 MG in IV NS 0.9% 50 ML IV SCH (12:11)
[2021-05-26 16:00] VITALS: BP 117/79
--- NOTE | 2021-05-26 16:00 | NUR ---
RN NOTES PER RADIOLOGY DEPARTMENT, DR. AP JAIN TO CONSULT ONCOLOGIST IF THEY CAN DO THE LUMBAR PUNCTURE OTHERWISE IF UNABLE TO DO, THEY WILL BE ABLE TO DO IT ON FRIDAY. DR. AP JAIN AWARE.
[2021-05-26] MEDS: ENSURE ENLIVE 237 ML LIQUID (VANILLA) PO SCH (17:34)
--- NOTE | 2021-05-26 18:46 | NUR ---
RN CLOSING NOTES PATIENT IN BED, AWAKE, A/O X4. ON RA TOLERATING WELL, NO S/SX OF RESPIRATORY DISTRESS NOTED. ON TELE MONITOR READING A-FIB CONTROLLED AT 80'S. NO COMPLAINTS OF PAIN VERBALIZED AT THIS TIME. LEFT HAND AND RIGHT HAND IV ACCESS G#20, BOTH INTACT AND PATENT, FLUSHES WELL. SAFETY MEASURES IN PLACE, BED LOCKED IN THE LOWEST POSITION WITH SIDE RAILS UP X2. WILL ENDORSE TO ONCOMING SHIFT FOR KATLIN.
[2021-05-26 20:00] VITALS: BP 128/74
[2021-05-27] VITALS: BP 114/72
[2021-05-27 04:00] VITALS: BP 117/68
[2021-05-27] MEDS: METRONIDAZOLE 500 MG TABLET PO SCH ×3 (05:06→21:10)
--- NOTE | 2021-05-27 06:27 | NUR ---
CAR HOPPER NOTES AWAKE & RESPONSIVE. NOT IN ANY DISTRESS. NO SOB NOTED. DENIES ANY PAIN OR DISCOMFORT AT THIS TIME. ON TELE AFIB @ 90S WITH IV-HL PATENT & INTACT. MONITORED ACCORDINGLY. CALL LIGHT WITHIN REACH. BED IN LOWEST POSITION. SR UP X 2 FOR SAFETY. WILL ENDORSE TO NEXT SHIFT.
[2021-05-27 06:53] LABS: ALBUMIN 2.1 g/dL (3.4-5.0); BILIRUBIN,TOTAL 1.6 mg/dL (0.2-1.0); CALCIUM, SERUM 7.4 mg/dL (8.5-10.1); CREATININE 2.9 mg/dL (0.6-1.3); MAGNESIUM 3.4 mg/dL (1.8-2.4); PHOSPHORUS 4.4 mg/dL (2.5-4.9); POTASSIUM 4.2 mmol/L (3.5-5.1); TOTAL PROTEIN, SERUM 5.6 g/dL (6.4-8.2)
[2021-05-27 06:56] LABS: BASOPHILS # (AUTO) 0.1 K/uL (0.0-0.2); BASOPHILS % (AUTO) 0.4 % (0.0-2.0); EOSINOPHILS % (AUTO) 0.5 % (0.0-6.0); HEMATOCRIT 32 % (39-51); HEMOGLOBIN 10.8 g/dL (13.5-17.5); LYMPHOCYTES # (AUTO) 3.5 K/uL (0.8-4.8); LYMPHOCYTES % (AUTO) 24.6 % (20.0-44.0); MEAN CORPUSCULAR HGB CONC 34 g/dl (31.0-36.0); MEAN CORPUSCULAR VOLUME 85 fL (80-96); MONOCYTES % (AUTO) 13.7 % (2.0-12.0); NEUTROPHILS # (AUTO) 8.7 K/uL (1.8-8.9); NEUTROPHILS % (AUTO) 60.8 % (43.0-81.0); RED BLOOD CELL COUNT(AUTO) 3.71 MIL/uL (4.5-6.0); WHITE BLOOD COUNT (AUTO) 14.3 K/uL (4.3-11.0)
--- NOTE | 2021-05-27 07:30 | NUR ---
CELL INSTALLER OPENING NOTES RECEIVED PATIENT ON BED AWAKE AND A/O X4. ON ROOM AIR TOLERATING WELL. NO SOB NOTED. NOT IN DISTRESS. WITH NO COMPLAINTS OF PAIN OR DISCOMFORT AT THIS TIME. WITH IV ACCESS AT LEFT HAND G22 AND AT RIGHT HAND G20 SALINE LOCKED, PATENT AND INTACT. ON TELE MONITOR CURRENTLY READING AFIB AT 88BPM. SAFETY MEASURES IN PLACED. CALL LIGHT WITHIN REACH. BED ON LOWEST LOCKED POSITION, SIDE RAILS UP X2. WILL CONTINUE TO MONITOR.
[2021-05-27 08:00] VITALS: BP 144/72
[2021-05-27 08:21] LABS: LYMPHOCYTES % (MANUAL) 25 % (16-48); MONOCYTES % (MANUAL) 11 % (0-11.0); NEUTROPHILS % (MANUAL) 64 (42-76)
[2021-05-27] MEDS: FERROUS SULFATE (325 MG) 325 MG/TAB TABLET PO SCH ×2 (08:36→16:35)
[2021-05-27] MEDS: ENSURE ENLIVE 237 ML LIQUID (VANILLA) PO SCH ×2 (08:36→16:35)
[2021-05-27] MEDS: PANTOPRAZOLE 40 MG TABLET.DR PO SCH (08:36)
[2021-05-27] MEDS: CEFTRIAXONE 2 G in IV D5W 100 ML IV SCH ×2 (08:36→21:10)
[2021-05-27] MEDS: METOPROLOL TARTRATE 50 MG TABLET PO SCH ×2 (08:36→21:11)
[2021-05-27 09:01] LABS: PLATELET COUNT (AUTO) 79 K/uL (150-450)
[2021-05-27 12:00] VITALS: BP 134/81
[2021-05-27 16:00] VITALS: BP 139/67
--- NOTE | 2021-05-27 18:59 | NUR ---
HAT AND CAP PARTS CUTTER HAND CLOSING NOTES PATIENT ON BED AWAKE AND A/O X4. ON ROOM AIR TOLERATING WELL. NO SOB NOTED. NOT IN DISTRESS. WITH NO COMPLAINTS OF PAIN OR DISCOMFORT AT THIS TIME. WITH IV ACCESS AT LEFT HAND G22 AND AT RIGHT HAND G20 SALINE LOCKED, PATENT AND INTACT. ON TELE MONITOR CURRENTLY READING AFIB AT 83BPM. SAFETY MEASURES IN PLACED. CALL LIGHT WITHIN REACH. BED ON LOWEST LOCKED POSITION, SIDE RAILS UP X2. WILL ENDORSE TO NEXT SHIFT FOR KATLIN.
--- NOTE | 2021-05-27 19:35 | NUR ---
RN OPENING NOTES RECEIVED PATIENT IN BED, SITTING POSITION, AWAKE AND A/O X4 AND VERBALLY RESPONSIVE. ON ROOM AIR AND PT TOLERATING WELL. BREATHING EVEN AND UNLABORED. IV ACCESS ON LEFT HAND #22G AND RIGHT HAND #20G INTACT AND PATENT. NO S/S OF INFILTRATIONS. NO C/O PAIN OR DISCOMFORT. NO ACUTE DISTRESS. ALL SAFETY MEASURES IN PLACE. BED IN LOWEST POSITION AND LOCKED, SIDE RAILS UP X2. PLACE CALL LIGHT WITH IN REACH. WILL CONTINUE TO MONITOR.
[2021-05-27 20:00] VITALS: BP 138/78
[2021-05-28] VITALS: BP 108/69
[2021-05-28 04:00] VITALS: BP 123/81
[2021-05-28] MEDS: METRONIDAZOLE 500 MG TABLET PO SCH ×3 (04:39→21:39)
--- NOTE | 2021-05-28 06:20 | NUR ---
RN CLOSING NOTES PATIENT IN BED, AWAKE AND A/O X4 AND VERBALLY RESPONSIVE. ON ROOM AIR, O2 SAT 100% AND PT TOLERATING WELL. BREATHING EVEN AND UNLABORED. IV ACCESS ON LEFT HAND #22G AND RIGHT HAND #20G INTACT AND PATENT. NO S/S OF INFILTRATIONS. NO C/O PAIN OR DISCOMFORT. NO ACUTE DISTRESS. ALL DUE MEDS GIVEN ORDERED. RADIOLOGIST MARIA LUISA CALLED, PT WILL HAVE LUMBER PUNCTURE LATER TODAY. RECEIVED ORDER FOR NPO START NOW, CBC, PTT, INR LAB ORDER. NOTED AND CARRIED OUT. ALL SAFETY MEASURES IN PLACE. BED IN LOWEST POSITION AND LOCKED, SIDE RAILS UP X2. PLACE CALL LIGHT WITH IN REACH. WILL ENDORSE TO MORNING SHIFT NURSE.
[2021-05-28] MEDS: PANTOPRAZOLE 40 MG TABLET.DR PO SCH (07:22)
[2021-05-28 07:44] LABS: BASOPHILS # (AUTO) 0.1 K/uL (0.0-0.2); EOSINOPHILS % (AUTO) 0.5 % (0.0-6.0); NEUTROPHILS # (AUTO) 9.1 K/uL (1.8-8.9); RED BLOOD CELL COUNT(AUTO) 3.42 MIL/uL (4.5-6.0)
[2021-05-28 07:52] LABS: BASOPHILS % (AUTO) 0.9 % (0.0-2.0); HEMATOCRIT 30 % (39-51); LYMPHOCYTES % (AUTO) 21.8 % (20.0-44.0); MEAN CORPUSCULAR HGB CONC 34 g/dl (31.0-36.0); MEAN CORPUSCULAR VOLUME 87 fL (80-96); MONOCYTES # (AUTO) 1.5 K/uL (0.1-1.30); MONOCYTES % (AUTO) 11.1 % (2.0-12.0); NEUTROPHILS % (AUTO) 65.7 % (43.0-81.0); PLATELET COUNT (AUTO) 54 K/uL (150-450); WHITE BLOOD COUNT (AUTO) 13.9 K/uL (4.3-11.0)
[2021-05-28 08:00] VITALS: BP 120/71
[2021-05-28] MEDS: METOPROLOL TARTRATE 50 MG TABLET PO SCH ×2 (08:03→21:38)
[2021-05-28] MEDS: FERROUS SULFATE (325 MG) 325 MG/TAB TABLET PO SCH ×2 (08:03→16:41)
[2021-05-28] MEDS: ENSURE ENLIVE 237 ML LIQUID (VANILLA) PO SCH ×2 (08:03→16:40)
[2021-05-28] MEDS: CEFTRIAXONE 2 G in IV D5W 100 ML IV SCH ×2 (08:07→21:39)
--- NOTE | 2021-05-28 08:19 | NUR ---
RN OPENING NOTE PT RECEIVED IN BED A/O X 4. PT IS ON ROOM AIR SHOWING NO S/SX OF RESP DISTRESS/SOB. BREATHING EVEN AND UNLABORED. ON PLASTIC TUBING INSULATION SUPERVISOR SHOWING NSR. IV ACCESS AT L HAND 22g, R HAND 20g, PATENT AND INTACT. ALL SAFETY MEASURES IMPLEMENTED. HOB ELEVATED. BED LOCKED AND IN LOWEST POSITION. SIDE RIALS UP. WILL CONTINUE TO MONITOR THROUGHOUT SHIFT.
[2021-05-28 08:35] LABS: CALCIUM, SERUM 7.4 mg/dL (8.5-10.1); CREATININE 2.4 mg/dL (0.6-1.3); PHOSPHORUS 4.4 mg/dL (2.5-4.9); POTASSIUM 4.6 mmol/L (3.5-5.1)
--- NOTE | 2021-05-28 11:01 | NUR ---
RN NOTES LUMBAR PUNCTURE COMPLETE. 3 VIALS OF CSF COLLECTED AND SENT TO LAB. HOME CARE MUSIC THERAPIST DARRIAN RECEIVED SPECIMENS.
[2021-05-28 11:07] LABS: *WEST NILE VIRUS, IgG, SERUM Negative (Negative)
[2021-05-28 12:00] VITALS: BP 136/70
[2021-05-28] MEDS: DAPTOMYCIN 500 MG in IV NS 0.9% 50 ML IV SCH (12:30)
--- NOTE | 2021-05-28 12:41 | NUR ---
RN NOTES MICRO FROM [facility] REPORTED A POSITIVE BLOOD CULTURE, GRAM POSITIVE COCCI IN CLUSTERS. RESULTS GIVEN BY SHARONA.
[2021-05-28 13:07] LABS: *WEST NILE VIRUS, IgM, SERUM Negative (Negative)
[2021-05-28 13:59] LABS: CSF GLUCOSE 61 mg/dL (40-70); CSF PROTEIN 48.6 mg/dL (15-45)
--- NOTE | 2021-05-28 14:04 | NUR ---
RN NOTES PT CURRENTLY ON HIS WAY FOR MRI W/O CONTRAST. PT LEFT UNIT IN STABLE CONDITION VIA WHEELCHAIR.
[2021-05-28 14:37] LABS: BAND % (MANUAL) 1 % (0.0-5.0); NEUTROPHILS % (MANUAL) 67 (42-76)
[2021-05-28 14:38] LABS: LYMPHOCYTES % (MANUAL) 25 % (16-48); MONOCYTES % (MANUAL) 7 % (0-11.0)
[2021-05-28 16:00] VITALS: BP 132/83
--- NOTE | 2021-05-28 18:51 | NUR ---
RN CLOSING NOTES PATIENT IN BED, AWAKE AND A/O X4 AND VERBALLY RESPONSIVE. ON ROOM AIR, O2 SAT 100% AND PT TOLERATING WELL. BREATHING EVEN AND UNLABORED. IV ACCESS ON LEFT HAND #22G AND RIGHT HAND #20G INTACT AND PATENT. NO S/S OF INFILTRATIONS. NO C/O PAIN OR DISCOMFORT. NO ACUTE DISTRESS. ALL DUE MEDS AND PROCEDURES GIVEN AND COMPLETED ORDERED. ALL SAFETY MEASURES IN PLACE. BED IN LOWEST POSITION AND LOCKED, SIDE RAILS UP X2. PLACE CALL LIGHT WITH IN REACH. WILL ENDORSE TO DYE AND CHEMICAL COORDINATOR FOR KATLIN.
--- NOTE | 2021-05-28 19:30 | NUR ---
RN OPENING NOTE RECEIVED CARE OF PATIENT FROM AM NURSE WHILE PATIENT IN BED, A/O X4, ABLE TO VERBALIZE NEEDS. PATIENT IN NO DISCOMFORT OR EXPRESSES SIGNS OF PAIN AT THIS TIME. PT IS ON ROOM AIR SHOWING NO S/SX OF RESP DISTRESS/SOB. BREATHING EVEN AND UNLABORED. ON PARAPLANNER SHOWING NSR WITH HR OF 78. IV ACCESS AT L HAND 22g, R HAND 20g, PATENT AND INTACT. ALL SAFETY MEASURES IMPLEMENTED. HOB ELEVATED. BED LOCKED AND IN LOWEST POSITION. SIDE RIALS UP. WILL CONTINUE TO MONITOR THROUGHOUT SHIFT.
[2021-05-28 20:00] VITALS: BP 134/70
[2021-05-29] VITALS: BP 132/78
[2021-05-29 04:00] VITALS: BP 127/77
[2021-05-29] MEDS: METRONIDAZOLE 500 MG TABLET PO SCH ×3 (05:45→21:34)
[2021-05-29 06:11] LABS: ALBUMIN 2.1 g/dL (3.4-5.0); BILIRUBIN,DIRECT 0.9 mg/dL (0.0-0.2); CALCIUM, SERUM 7.5 mg/dL (8.5-10.1); CREATININE 2.4 mg/dL (0.6-1.3); MAGNESIUM 2.9 mg/dL (1.8-2.4); PHOSPHORUS 4.4 mg/dL (2.5-4.9); POTASSIUM 4.8 mmol/L (3.5-5.1); TOTAL PROTEIN, SERUM 5.9 g/dL (6.4-8.2)
[2021-05-29 06:43] LABS: BASOPHILS % (AUTO) 0.4 % (0.0-2.0); EOSINOPHILS % (AUTO) 0.6 % (0.0-6.0); HEMATOCRIT 29 % (39-51); HEMOGLOBIN 9.7 g/dL (13.5-17.5); LYMPHOCYTES % (AUTO) 22.8 % (20.0-44.0); MEAN CORPUSCULAR HGB CONC 33 g/dl (31.0-36.0); MEAN CORPUSCULAR VOLUME 87 fL (80-96); MONOCYTES # (AUTO) 1.6 K/uL (0.1-1.30); MONOCYTES % (AUTO) 12.4 % (2.0-12.0); NEUTROPHILS # (AUTO) 8.4 K/uL (1.8-8.9); NEUTROPHILS % (AUTO) 63.8 % (43.0-81.0); PLATELET COUNT (AUTO) 52 K/uL (150-450); RED BLOOD CELL COUNT(AUTO) 3.34 MIL/uL (4.5-6.0); WHITE BLOOD COUNT (AUTO) 13.1 K/uL (4.3-11.0)
--- NOTE | 2021-05-29 07:14 | NUR ---
RN OPENING NOTE PT RECEIVED IN BED A/O X 4. PT IS ON ROOM AIR SHOWING NO S/SX OF RESP DISTRESS/SOB. BREATHING EVEN AND UNLABORED. ON SODA TESTER SHOWING NSR. IV ACCESS AT L HAND 22g, R HAND 20g, PATENT AND INTACT. ALL SAFETY MEASURES IMPLEMENTED. HOB ELEVATED. BED LOCKED AND IN LOWEST POSITION. SIDE RIALS UP. WILL CONTINUE TO MONITOR THROUGHOUT SHIFT.
--- NOTE | 2021-05-29 07:15 | NUR ---
RN NOTES ENDORSED CARE OF PATIENT TO AM NURSE IN STABLE CONDITIONS. ALL PATIENT NEEDS MET THROUGHOUT SHIFT, ALL DUE MEDS GIVEN. NO SIGNIFICANT FINDINGS UPON ALL NURSING ASSESSMENTS. SAFETY MEASURES KEPT IN PLACE ACCORDING TO HOSPITAL PROTOCOLS. ENDORSE TO AM NURSE FOR KATLIN.
[2021-05-29] MEDS: PANTOPRAZOLE 40 MG TABLET.DR PO SCH (07:28)
[2021-05-29 08:00] VITALS: BP 131/71
[2021-05-29] MEDS: FERROUS SULFATE (325 MG) 325 MG/TAB TABLET PO SCH ×2 (08:09→16:53)
[2021-05-29] MEDS: CEFTRIAXONE 2 G in IV D5W 100 ML IV SCH ×2 (08:09→21:10)
[2021-05-29] MEDS: ENSURE ENLIVE 237 ML LIQUID (VANILLA) PO SCH ×2 (08:10→16:53)
[2021-05-29] MEDS: METOPROLOL TARTRATE 50 MG TABLET PO SCH ×2 (08:31→21:34)
[2021-05-29 12:00] VITALS: BP 130/75
[2021-05-29 16:00] VITALS: BP 134/72
--- NOTE | 2021-05-29 17:56 | NUR ---
RN NOTES PT FEELING ANXIOUS AND RESTLESS/SLEEPLESS DUE TO OPIATE, ALCOHOL, AND NICOTINE WITHDRAWAL. PT EMPHASIZES OPIATE ADDICTION/WITHDRAWAL. BILINGUAL ACCOUNT MANAGER YOLI NAPOLES NOTIFIED FOR FURTHER ACTION OR RECOMMENDATION.
[2021-05-29] MEDS: NICOTINE PATCH (21MG) 21 MG PATCH.TD24 TD SCH (18:12)
[2021-05-29] MEDS: ALPRAZOLAM 0.25 MG TABLET PO PRN (18:12)
--- NOTE | 2021-05-29 18:27 | NUR ---
RN CLOSING NOTES PATIENT IN BED, AWAKE AND A/O X4 AND VERBALLY RESPONSIVE. ON ROOM AIR, O2 SAT 100% AND PT TOLERATING WELL. BREATHING EVEN AND UNLABORED. IV ACCESS ON LEFT HAND #22G . NO S/S OF INFILTRATIONS. NO C/O PAIN OR DISCOMFORT. NO ACUTE DISTRESS. ALL DUE MEDS AND PROCEDURES GIVEN AND COMPLETED ORDERED. ALL SAFETY MEASURES IN PLACE. BED IN LOWEST POSITION AND LOCKED, SIDE RAILS UP X2. PLACE CALL LIGHT WITH IN REACH. WILL ENDORSE TO ELECTRICAL INSTALLATION INSPECTOR FOR KATLIN.
--- NOTE | 2021-05-29 19:48 | NUR ---
RN OPENING NOTES RECEIVED PATIENT IN BED, SITTING POSITION, AWAKE AND A/O X4 AND VERBALLY RESPONSIVE. ON ROOM AIR AND PT TOLERATING WELL. BREATHING EVEN AND UNLABORED. IV ACCESS ON RIGHT HAND #20G INTACT AND PATENT. NO S/S OF INFILTRATIONS. NO C/O PAIN OR DISCOMFORT. NO ACUTE DISTRESS. ALL SAFETY MEASURES IN PLACE. BED IN LOWEST POSITION AND LOCKED, SIDE RAILS UP X2. PLACE CALL LIGHT WITH IN REACH. WILL CONTINUE TO MONITOR.
[2021-05-29 20:00] VITALS: BP 135/86
[2021-05-29] MEDS: TRAZODONE 50 MG TABLET PO SCH (21:35)
[2021-05-30] VITALS: BP 125/72
[2021-05-30 04:00] VITALS: BP 125/70
[2021-05-30] MEDS: METRONIDAZOLE 500 MG TABLET PO SCH ×3 (04:54→20:01)
--- NOTE | 2021-05-30 06:37 | NUR ---
RN CLOSING NOTES PATIENT IN BED SLEEPING BUT EASILY AROUSABLE, AWAKE AND A/O X4 AND VERBALLY RESPONSIVE. ON ROOM AIR, O2 SAT 100% AND PT TOLERATING WELL. BREATHING EVEN AND UNLABORED. IV ACCESS ON LT HAND #22G INTACT AND PATENT. NO S/S OF INFILTRATIONS. NO C/O PAIN OR DISCOMFORT. NO ACUTE DISTRESS. ALL DUE MEDS GIVEN ORDERED. ALL SAFETY MEASURES IN PLACE. BED IN LOWEST POSITION AND LOCKED, SIDE RAILS UP X2. PLACE CALL LIGHT WITH IN REACH. WILL ENDORSE TO MORNING SHIFT NURSE.
[2021-05-30 06:40] LABS: BASOPHILS # (AUTO) 0.1 K/uL (0.0-0.2); BASOPHILS % (AUTO) 0.7 % (0.0-2.0); EOSINOPHILS % (AUTO) 0.8 % (0.0-6.0); HEMATOCRIT 30 % (39-51); HEMOGLOBIN 10.2 g/dL (13.5-17.5); LYMPHOCYTES # (AUTO) 2.3 K/uL (0.8-4.8); LYMPHOCYTES % (AUTO) 23.1 % (20.0-44.0); MEAN CORPUSCULAR HGB CONC 34 g/dl (31.0-36.0); MEAN CORPUSCULAR VOLUME 87 fL (80-96); MONOCYTES # (AUTO) 1.4 K/uL (0.1-1.30); MONOCYTES % (AUTO) 13.4 % (2.0-12.0); NEUTROPHILS # (AUTO) 6.3 K/uL (1.8-8.9); RED BLOOD CELL COUNT(AUTO) 3.44 MIL/uL (4.5-6.0); WHITE BLOOD COUNT (AUTO) 10.1 K/uL (4.3-11.0)
--- NOTE | 2021-05-30 07:08 | NUR ---
RN OPENING NOTES RECEIVED PATIENT IN BED, RESTING AND A/O X4. ON ROOM AIR AND PT TOLERATING WELL. BREATHING EVEN AND UNLABORED. IV ACCESS ON RIGHT HAND #20G INTACT AND PATENT. NO S/S OF INFILTRATIONS. NO C/O PAIN OR DISCOMFORT. NO ACUTE DISTRESS. ALL SAFETY MEASURES IN PLACE. BED IN LOWEST POSITION AND LOCKED, SIDE RAILS UP X2. PLACE CALL LIGHT WITH IN REACH. WILL CONTINUE TO MONITOR THROUGHOUT SHIFT.
[2021-05-30] MEDS: PANTOPRAZOLE 40 MG TABLET.DR PO SCH (07:15)
[2021-05-30 07:36] LABS: CALCIUM, SERUM 7.9 mg/dL (8.5-10.1); CREATININE 2.2 mg/dL (0.6-1.3); MAGNESIUM 2.6 mg/dL (1.8-2.4); PHOSPHORUS 4.3 mg/dL (2.5-4.9); POTASSIUM 4.8 mmol/L (3.5-5.1)
[2021-05-30 08:00] VITALS: BP 124/77
[2021-05-30] MEDS: ENSURE ENLIVE 237 ML LIQUID (VANILLA) PO SCH ×2 (08:45→16:32)
[2021-05-30] MEDS: CEFTRIAXONE 2 G in IV D5W 100 ML IV SCH (08:45)
[2021-05-30] MEDS: FERROUS SULFATE (325 MG) 325 MG/TAB TABLET PO SCH ×2 (08:45→16:32)
[2021-05-30] MEDS: NICOTINE PATCH (21MG) 21 MG PATCH.TD24 TD SCH (08:46)
[2021-05-30] MEDS: METOPROLOL TARTRATE 50 MG TABLET PO SCH ×2 (08:46→20:02)
[2021-05-30 10:05] LABS: PLATELET COUNT (AUTO) 96 K/uL (150-450)
[2021-05-30 12:00] VITALS: BP 126/79
[2021-05-30] MEDS: DAPTOMYCIN 500 MG in IV NS 0.9% 50 ML IV SCH (12:44)
[2021-05-30 16:00] VITALS: BP 131/83
--- NOTE | 2021-05-30 18:37 | NUR ---
RN CLOSING NOTES PATIENT IN BED, AWAKE AND A/O X4 AND VERBALLY RESPONSIVE. ON ROOM AIR, O2 SAT 100% AND PT TOLERATING WELL. BREATHING EVEN AND UNLABORED. IV ACCESS ON LEFT HAND #22G . NO S/S OF INFILTRATIONS. NO C/O PAIN OR DISCOMFORT. NO ACUTE DISTRESS. ALL DUE MEDS AND PROCEDURES GIVEN AND COMPLETED ORDERED. ALL SAFETY MEASURES IN PLACE. BED IN LOWEST POSITION AND LOCKED, SIDE RAILS UP X2. PLACE CALL LIGHT WITH IN REACH. WILL ENDORSE TO CONCRETE PIPE PLANT SUPERVISOR FOR KATLIN Addendum: 05/30/21 at 1838 by LIAM KELLEY RN IV ACCESS NOW AT LEFT FOREARM 22G.
[2021-05-30] MEDS: ALPRAZOLAM 0.25 MG TABLET PO PRN (18:42)
--- NOTE | 2021-05-30 19:10 | NUR ---
RN NOTES RECEIVED PATIENT IN BED, RESTING AND A/O X4. ON ROOM AIR AND PT TOLERATING WELL. BREATHING EVEN AND UNLABORED. IV ACCESS ON L MISTY #22G INTACT AND PATENT. NO S/S OF INFILTRATIONS. NO C/O PAIN OR DISCOMFORT. NO ACUTE DISTRESS. ALL SAFETY MEASURES IN PLACE. BED IN LOWEST POSITION AND LOCKED, SIDE RAILS UP X2. PLACE CALL LIGHT WITH IN REACH. WILL CONTINUE TO MONITOR THROUGHOUT SHIFT.
[2021-05-30 20:00] VITALS: BP 119/78
[2021-05-30] MEDS ORDERED: CEFTRIAXONE 2 G in IV D5W 100 ML IV SCH (21:00)
[2021-05-30] MEDS: TRAZODONE 50 MG TABLET PO SCH (21:28)
[2021-05-31] VITALS: BP 125/70
[2021-05-31 04:00] VITALS: BP 124/76
[2021-05-31] MEDS: METRONIDAZOLE 500 MG TABLET PO SCH ×2 (05:26→12:02)
--- NOTE | 2021-05-31 06:42 | NUR ---
RN NOTES PATIENT REMAINS STABLE NO SIGNIFICANT CHANGES IN HEALTH CONDITION THIS SHIFT. ALL DUE MEDS GIVEN ORDERED. KEPT CLEAN AND DRYA AT ALL TIMES ALL NEEDS ATTENDED. WILL ENDORSED TO MORNING SHIFT FOR KATLIN
[2021-05-31 06:49] LABS: CREATININE 2.1 mg/dL (0.6-1.3); MAGNESIUM 2.4 mg/dL (1.8-2.4); PHOSPHORUS 3.8 mg/dL (2.5-4.9); POTASSIUM 4.8 mmol/L (3.5-5.1)
--- NOTE | 2021-05-31 07:40 | NUR ---
RN NOTE PATIENT RECEIVED IN BED, AWAKE, A&OX4, SITTING IN CHAIR. PATIENT ON ROOM AIR WITH NO SIGNS OF LABORED BREATHING AT THIS TIME. LEFT FA 22G SL IN PLACE. NO SIGNS OF ACUTE DISTRESS NOTED AT THIS TIME. BED LOCKED AND IN LOWEST POSITION, CALL LIGHT WITHIN REACH, 2 SIDE RAILS UP. WILL CONTINUE TO MONITOR.
[2021-05-31 07:45] LABS: BASOPHILS # (AUTO) 0.1 K/uL (0.0-0.2); BASOPHILS % (AUTO) 0.4 % (0.0-2.0); EOSINOPHILS % (AUTO) 0.5 % (0.0-6.0); HEMATOCRIT 33 % (39-51); HEMOGLOBIN 10.9 g/dL (13.5-17.5); LYMPHOCYTES # (AUTO) 2.6 K/uL (0.8-4.8); LYMPHOCYTES % (AUTO) 21.3 % (20.0-44.0); MEAN CORPUSCULAR HGB CONC 33 g/dl (31.0-36.0); MEAN CORPUSCULAR VOLUME 87 fL (80-96); MONOCYTES # (AUTO) 1.2 K/uL (0.1-1.30); MONOCYTES % (AUTO) 9.6 % (2.0-12.0); NEUTROPHILS # (AUTO) 8.2 K/uL (1.8-8.9); NEUTROPHILS % (AUTO) 68.2 % (43.0-81.0); PLATELET COUNT (AUTO) 220 K/uL (150-450); RED BLOOD CELL COUNT(AUTO) 3.79 MIL/uL (4.5-6.0)
[2021-05-31 08:00] VITALS: BP 131/74
[2021-05-31] MEDS: ENSURE ENLIVE 237 ML LIQUID (VANILLA) PO SCH (08:35)
[2021-05-31] MEDS: METOPROLOL TARTRATE 50 MG TABLET PO SCH (08:38)
[2021-05-31] MEDS: NICOTINE PATCH (21MG) 21 MG PATCH.TD24 TD SCH (08:38)
[2021-05-31] MEDS: FERROUS SULFATE (325 MG) 325 MG/TAB TABLET PO SCH ×2 (08:38→16:07)
[2021-05-31] MEDS: PANTOPRAZOLE 40 MG TABLET.DR PO SCH (08:38)
[2021-05-31 12:00] VITALS: BP 129/84
[2021-05-31 16:00] VITALS: BP 122/69
[2021-05-31] MEDS ORDERED: AMOX-430 PO (16:19)
[2021-05-31] MEDS ORDERED: METO50TA16 PO (16:19)
--- NOTE | 2021-05-31 16:43 | NUR ---
RN NOTE PATIENT DISCHARGED ORDER. PATIENT MEDICALLY STABLE, ON ROOM AIR WITH NO SIGNS OF DISTRESS. IV REMOVED. PATIENT GIVEN EDUCATION ON DIAGNOSIS AND NEED TO FURTHER TREATMENT AND FOLLOW UP.
== END 2021-05-31 16:43 | disposition home or self-care (01) | DRG 871 ==
LOC: ER 20:48 → TELE1 05-22 04:32 → TELE-TD 05-23 07:05 → TELE1 05-24 16:39
PROVIDERS: ATTEND Nurse Practitioner Family
PROC: 009U3ZX Drainage of Spinal Canal, Percutaneous Approach, Diagnostic (ICD-10-PCS; principal; 2021-05-28)
PROC: B01BYZZ Fluoroscopy of Spinal Cord using Other Contrast (ICD-10-PCS; 2021-05-28)
DX: A41.9 Sepsis, unspecified organism (principal); N17.0 Acute kidney failure with tubular necrosis; J18.9 Pneumonia, unspecified organism; E87.1 Hypo-osmolality and hyponatremia; D68.9 Coagulation defect, unspecified; C22.8 Malignant neoplasm of liver, primary, unspecified as to type; I48.92 Unspecified atrial flutter; E87.2 Acidosis; J98.11 Atelectasis; Z20.822 Contact with and (suspected) exposure to COVID-19; D69.6 Thrombocytopenia, unspecified; K70.30 Alcoholic cirrhosis of liver without ascites; E87.6 Hypokalemia; E86.1 Hypovolemia; E88.09 Other disorders of plasma-protein metabolism, not elsewhere classified; E27.8 Other specified disorders of adrenal gland; F17.200 Nicotine dependence, unspecified, uncomplicated; M19.90 Unspecified osteoarthritis, unspecified site; F19.10 Other psychoactive substance abuse, uncomplicated; K76.0 Fatty (change of) liver, not elsewhere classified; R16.2 Hepatomegaly with splenomegaly, not elsewhere classified; D64.9 Anemia, unspecified; R59.0 Localized enlarged lymph nodes; I50.9 Heart failure, unspecified; K44.9 Diaphragmatic hernia without obstruction or gangrene; K59.00 Constipation, unspecified; N43.3 Hydrocele, unspecified; M43.10 Spondylolisthesis, site unspecified; M40.205 Unspecified kyphosis, thoracolumbar region; E61.1 Iron deficiency
CPT/HCPCS: 36415; 36600; 62270; 70450-TC; 70551-TC; 71045-TC; 71250-TC; 74183; 76700-TC; 80048-TC; 80053-TC; 80061-TC; 80074; 80076-TC; 80202-TC; 81001; 82105; 82140-TC; 82150-TC; 82272-TC; 82378; 82607-TC; 82728-TC; 82784; 82803-TC; 83540-TC; 83605-TC; 83615-TC; 83690-TC; 83735-TC; 84100-TC; 84153-TC; 84154-TC; 84155; 84165; 84439-TC; 84443-TC; 85025-TC; 85396; 85610-TC; 85730-TC; 86225; 86235; 86301; 86334; 86431-TC; 86592; 86788; 86789; 87040-TC; 87070-TC; 87081-TC; 87086-TC; 87806; 89051-TC; 93307-TC; A4216; A9575; C9113; C9803; G0378; J0282; J0696; J0878; J1160; J1940; J2405; J3370; J7030; J7040; J7042; J7050; J7060; Q9967